=== PATIENT | male | born 1975 | race Caucasian/White ===

== ENCOUNTER 2016-07-10 10:32 | Emergency (ER) | payer BC, OTHER ==
[~2016-07-10] VITALS: Ht 180.3 cm; Wt 117.9 kg
[~2016-07-10 10:32] MED LIST: AMLO25TA PO; ATARAX OR; LORT5TAB PO; MAAL600C PO; PAXI20TA OR; PAXI40TA OR; PROTPAK PO; SIMV20TA2 PO; TRAZ100T OR; flexeril PO
[2016-07-10] MEDS ORDERED: PROA1AER INH (11:02)
[2016-07-10] MEDS ORDERED: AMOX-CLAV PO (11:02)
[2016-07-10] MEDS ORDERED: PRED20TA PO (11:02)
--- NOTE | 2016-07-10 12:38 | REP ---
Chest two views HISTORY: Cough Comparison: 04/10/2015 Linear density is present in the left lower lobe consistent with scar. The right lung is clear. The heart is normal in size. The pulmonary vasculature is normal in appearance. The bony structure is intact. IMPRESSION: Left lower lobe scar. Signed by Roel Rosas MD 07/10/2016 12:28 P
[2016-07-10] MEDS ORDERED: [UNRECOGNIZED DRUG - CODE] PO (13:08)
[2016-07-10] MEDS ORDERED: TESS100C PO (13:11)
[2016-07-10 13:31] VITALS: BP 141/92
== END 2016-07-10 13:32 | disposition home or self-care (01) ==
LOC: M ED 11:51
DX: J06.9 Acute upper respiratory infection, unspecified (principal); Z79.2 Long term (current) use of antibiotics; Z79.52 Long term (current) use of systemic steroids; Z88.2 Allergy status to sulfonamides

== ENCOUNTER 2016-07-20 06:12 | Emergency (ER) | payer BC, OTHER ==
[~2016-07-20] VITALS: Ht 180.3 cm; Wt 117.9 kg
[~2016-07-20 06:12] MED LIST changes: +AMOX-CLAV PO; +PRED20TA PO; +PROA1AER INH; +TESS100C PO; +[UNRECOGNIZED DRUG - CODE] PO
[2016-07-20] MEDS ORDERED: diphenhydrAMINE INJ 50MG/ML VIAL (J1200) IV STA (07:28)
[2016-07-20] MEDS ORDERED: NS 1,000 ML IV ONE (07:30)
[2016-07-20] MEDS ORDERED: METOCLOPRAMIDE INJ 10MG/2ML VIAL (J2765) IV ONE (07:30)
[2016-07-20] MEDS ORDERED: KETOROLAC 30 MG/ML VIAL (J1885) IV ONE (07:30)
--- NOTE | 2016-07-20 07:30 | REPUSA ---
CLINICAL HISTORY: Neck pain. TECHNIQUE: Multiple axial images were obtained through the cervical spine. Images were also reconstru cted in coronal and sagittal planes. The study was performed without IV contrast. COMMENTS: There is no fracture or spondylolisthesis visualized. The paraspinal soft tissues are unremarkable. T here are no lytic or blastic lesions. Straightening of cervical lordosis is seen, suggesting muscular spasm. There is evidence of minimal m ultilevel disk disease, demonstrated by minimal osteophytosis and endplate sclerosis. No significant disk herniation is noted at any level. Canal and foramina remain patent. IMPRESSION: 1. No fracture or spondylolisthesis. 2. Straightening of cervical lordosis is seen, suggesting muscular spasm. 3. Minimal multilevel spondylosis. Thank you for your kind referral of this patient.
[2016-07-20] MEDS ORDERED: MORPHINE 4 MG/ML 1ML SYRINGE IV ONE (09:30)
[2016-07-20] MEDS ORDERED: NORCOTAB PO (10:01)
[2016-07-20 10:02] VITALS: BP 138/86
[2016-07-20] MEDS ORDERED: ZOFR4TAB3 PO (10:03)
== END 2016-07-20 10:34 | disposition home or self-care (01) ==
LOC: EDBD 06:12 → M ED 08:23
DX: S06.0X0A Concussion without loss of consciousness, initial encounter (principal); W19.XXXA Unspecified fall, initial encounter; Y92.099 Unspecified place in other non-institutional residence as the place of occurrence of the external cause; Y93.89 Activity, other specified; Y99.9 Unspecified external cause status
CPT/HCPCS: 70450; 72125; 96361; 96374; 96375; 99282; J1200; J1885; J2765

== ENCOUNTER 2016-07-22 10:22 | Emergency (ER) | payer BC, OTHER ==
[~2016-07-22] VITALS: Ht 180.3 cm; Wt 116.6 kg
[~2016-07-22 10:22] MED LIST changes: +NORCOTAB PO; +ZOFR4TAB3 PO
[2016-07-22] MEDS ORDERED: REGL10TA6 PO (12:30)
[2016-07-22] MEDS ORDERED: METOCLOPRAMIDE 10 MG TAB PO ONE (12:30)
[2016-07-22] MEDS ORDERED: ONDANSETRON 4 MG ORAL DISINTEGRATING TAB (S0181) PO ONE (12:30)
[2016-07-22] MEDS ORDERED: ZOFR4TAB3 PO (12:30)
--- NOTE | 2016-07-22 13:05 | REP ---
CT Head without contrast HISTORY: Trauma COMPARISON: 07/20/2016 There is no intraparenchymal hemorrhage, acute infarct, mass or midline shift. The ventricular system is normal in appearance. There is no extra cerebral collection. There is no fracture. The visualized sinuses are clear. IMPRESSION: There is no intracranial lesion. Signed by Roel Rosas MD 07/22/2016 12:57 P
[2016-07-22] MEDS ORDERED: PERC5TAB6 PO (13:12)
[2016-07-22 13:16] VITALS: BP 139/89
== END 2016-07-22 13:26 | disposition home or self-care (01) ==
LOC: M ED 11:21
DX: R51 Headache (principal); R11.2 Nausea with vomiting, unspecified; S09.90XA Unspecified injury of head, initial encounter; W01.0XXA Fall on same level from slipping, tripping and stumbling without subsequent striking against object, initial encounter; Y92.89 Other specified places as the place of occurrence of the external cause; Y93.01 Activity, walking, marching and hiking; Y99.8 Other external cause status; Z88.2 Allergy status to sulfonamides; Z87.442 Personal history of urinary calculi; E80.4 Gilbert syndrome; F41.9 Anxiety disorder, unspecified; F32.9 Major depressive disorder, single episode, unspecified

== ENCOUNTER → 2016-09-02 | Outpatient (CLI) | payer BC, OTHER ==
[~2016-09-02] MED LIST changes: +PERC5TAB6 PO; +REGL10TA6 PO
--- NOTE | 2016-09-02 11:52 | REP ---
HIDA SCAN WITH GALLBLADDER EJECTION FRACTION: Following the intravenous administration of 6.6 millicuries technetium 99m Mebrofenin, multiple images of the right upper quadrant are performed every 5 minutes for a period of 1 hour. The gallbladder is visualized at 10 minutes post injection. There is biliary to bowel transit at 55 minutes post injection with no scintigraphic evidence of cholecystitis. At the 1-hour livan, 8 ounces of Ensure Enlive was ingested and further imaging performed for 1 hour. Gallbladder activity is measured in the gallbladder ejection fraction is calculated to be 93%, which is normal. IMPRESSION: Normal gallbladder ejection fraction. No scintigraphic evidence of cholecystitis. Signed by Hugo Armenta MD 09/02/2016 05:42 P
== END ==
LOC: M RAD 07:59
PROVIDERS: ATTEND Internal Medicine
DX: R10.11 Right upper quadrant pain (principal)

== ENCOUNTER → 2016-09-06 | Outpatient (REF) | payer BC, OTHER ==
[2016-09-09 08:37] LABS: CONTROL LINE HPYORI INT CTR LINE PRESENT
[2016-09-10 00:31] LABS: ENDOMYSIAL ABY IgA Negative (Negative)
== END ==
LOC: M LAB REF 16:30
PROVIDERS: ATTEND Internal Medicine
DX: R10.11 Right upper quadrant pain (principal); R10.13 Epigastric pain; K58.0 Irritable bowel syndrome with diarrhea

== ENCOUNTER → 2019-01-26 | Outpatient (REF) | payer OTHER ==
[~2019-01-26] MED LIST changes: +HYDR-3715 PO; -NORCOTAB PO; +PERC5TAB12 PO; -PERC5TAB6 PO; -PROA1AER INH; +PROAAER10 INH; +ZOFR4TAB14 PO; -ZOFR4TAB3 PO
== END ==
LOC: M LAB REF 19:24
PROVIDERS: ATTEND Internal Medicine
DX: K57.30 Diverticulosis of large intestine without perforation or abscess without bleeding (principal)

== ENCOUNTER 2021-01-16 13:55 | Emergency (ER) | payer OTHER, BC ==
[~2021-01-16] VITALS: Ht 180.3 cm; Wt 124.0 kg
[2021-01-16 13:55] VITALS: BP 134/93
[~2021-01-16 13:55] MED LIST changes: -SIMV20TA2 PO; +SIMV20TA22 PO
--- NOTE | 2021-01-16 14:29 | REP ---
INDICATION: trauma COMPARISON: 03/06/2015. TECHNIQUE: Four views left hand. FINDINGS: There is no evidence of acute fracture, dislocation, or intrinsic bone disease.There is an old avulsion fracture at the base of the 3rd proximal phalanx. IMPRESSION: No acute fracture or dislocation. <Electronically signed by Hugo Armenta > 01/16/21 [id number]
[2021-01-16] MEDS ORDERED: LOSA50TA88 (15:11)
[2021-01-16] MEDS ORDERED: BUPR150T12 (15:11)
== END 2021-01-16 15:14 | disposition home or self-care (01) ==
LOC: M ED 13:55
DX: S67.22XA Crushing injury of left hand, initial encounter (principal); W23.1XXA Caught, crushed, jammed, or pinched between stationary objects, initial encounter; Y92.9 Unspecified place or not applicable; Y93.9 Activity, unspecified; Y99.0 Civilian activity done for income or pay; Z79.899 Other long term (current) drug therapy

== ENCOUNTER 2021-02-24 14:21 | Emergency (ER) | payer OTHER, BC ==
[~2021-02-24] VITALS: Ht 180.3 cm; Wt 122.7 kg
[~2021-02-24 14:21] MED LIST changes: +BUPR150T12; +LOSA50TA88
[2021-02-24] MEDS ORDERED: LEXA1TAB PO (14:29)
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
[2021-02-24] MEDS ORDERED: GI COCKTAIL 50ML BTL(HYOSCYAMINE/MAALOX/LIDOCAINE VISCOUS)(1:3:1) PO ONE (14:50)
[2021-02-24] MEDS ORDERED: ASPIRIN 81 MG CHEW TABLET PO ONE (14:50)
[2021-02-24 14:53] LABS: BASO # 0.1 10^3/uL (0.0-0.2); BASO % 0.6 % (0.0-1.0); EOS # 0.4 10^3/uL (0.0-0.5); EOS % 5.3 % (0.0-3.0); HEMATOCRIT 42.1 % (42.0-52.0); HEMOGLOBIN 14.9 g/dl (13.5-17.5); LYMPH # 1.9 10^3/uL (1.5-5.0); LYMPH % 24.3 % (24.0-44.0); MEAN CORPUSCULAR HEMOGLOBIN 31.3 pg (27.0-33.0); MEAN CORPUSCULAR HGB CONC 35.4 g/dl (32.0-36.5); MEAN CORPUSCULAR VOLUME 88.4 fl (80.0-96.0); MONO # 0.7 10^3/uL (0.0-0.8); MONO % 8.7 % (2.0-8.0); NEUTROPHILS # 4.8 10^3/uL (1.5-8.5); NEUTROPHILS % 60.6 % (36.0-66.0); PLATELET COUNT, AUTOMATED 213 10^3/uL (150-450); RED BLOOD COUNT 4.76 10^6/uL (4.30-6.10)
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
[2021-02-24 15:32] LABS: BLOOD UREA NITROGEN 14 MG/DL (7-18); CALCIUM LEVEL 8.3 MG/DL (8.5-10.1); CARBON DIOXIDE LEVEL 26 MEQ/L (21-32); CHLORIDE LEVEL 109 MEQ/L (98-107); CK-MB VALUE MASS 1.2 NG/ML (<3.6); CPK CREATINE PHOSPHOKINASE 118 U/L (39-308); CREATININE FOR GFR 1.05 MG/DL (0.70-1.30); GLOMERULAR FILTRATION RATE > 60.0 (>60); GLUCOSE, FASTING 129 MG/DL (70-100); MB/CK RELATIVE INDEX 1.02 (< OR =4); SODIUM LEVEL 141 MEQ/L (136-145); TROPONIN I < 0.02 NG/ML (< 0.10)
--- NOTE | 2021-02-24 15:45 | REP ---
INDICATION: CHEST PAIN. COMPARISON: 07/10/2016 TECHNIQUE: Portable FINDINGS: The technique utilized in obtaining the radiograph has magnified the cardiac silhouette and accentuated the interstitial markings. The superior mediastinal structures are midline. The cardiac silhouette is unremarkable in size, shape, and position. The diaphragmatic surfaces of the lungs are regular, and the costophrenic angles are clear. The pulmonary wise are clear. The imaged osseous structures are intact. IMPRESSION: There is no acute cardiopulmonary disease. <Electronically signed by Collin Ramachandran > 02/24/21 [id number]
[2021-02-24] MEDS ORDERED: KETOROLAC 30 MG/ML 1ML VIAL IV ONE (16:20)
--- NOTE | 2021-02-24 18:23 | ECGEPIP ---
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
[2021-02-24] MEDS ORDERED: ISOVUE-370 76% 100ML VIAL As Ordered ONE (18:28)
[2021-02-24 20:14] LABS: CK-MB VALUE MASS < 1.0 NG/ML (<3.6); CPK CREATINE PHOSPHOKINASE 123 U/L (39-308); MB/CK RELATIVE INDEX 0.81 (< OR =4); TROPONIN I < 0.02 NG/ML (< 0.10)
[2021-02-24 20:15] VITALS: BP 128/90
[2021-02-24 20:16] LABS: ALBUMIN 3.6 GM/DL (3.2-5.2); ALT/SGPT 49 U/L (12-78); BILIRUBIN,DIRECT 0.1 MG/DL (0.0-0.2); BILIRUBIN,TOTAL 0.9 MG/DL (0.2-1.0); LIPASE 108 U/L (73-393); TOTAL PROTEIN 6.7 GM/DL (6.4-8.2)
--- NOTE | 2021-02-25 07:52 | ECGEPIP ---
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
--- NOTE | 2021-02-26 08:40 | REP ---
INDICATION: chest pain into back; r/o TAA. COMPARISON: CT abdomen and pelvis 09/09/2016. TECHNIQUE: CT angiogram chest performed following the intravenous administration of 100 cc of Isovue 370. Sagittal and coronal reconstruction images are performed. FINDINGS: Lungs: Clear, no infiltrate or nodule. Mediastinum: No adenopathy. Pulmonary arteries: No evidence of pulmonary embolism. Dora: No adenopathy. Axilla: No adenopathy. Pleura: No effusion. Heart: Not enlarged. Thoracic aorta: No aneurysm or dissection. Upper abdominal structures: There is a cyst of the upper pole the right kidney 1.4 cm in diameter. Visualized osseous structures: Unremarkable. IMPRESSION: No CT evidence of pulmonary embolism. No infiltrate seen. A preliminary report was provided by [facility] Radiology at the time of the exam. <Electronically signed by Hugo Armenta > 02/26/21 [id number]
== END 2021-02-24 20:36 | disposition home or self-care (01) ==
LOC: M ED 14:21
DX: R07.89 Other chest pain (principal); R00.1 Bradycardia, unspecified; E80.4 Gilbert syndrome; Z87.442 Personal history of urinary calculi; F32.9 Major depressive disorder, single episode, unspecified; Z88.2 Allergy status to sulfonamides; Z79.899 Other long term (current) drug therapy
CPT/HCPCS: 36415; 71045; 71275; 80048; 80076; 82550; 82553; 83690; 84484; 85025; 85379; 93005; 93041; 94760; 96374; 99285; J1885; Q9967

== ENCOUNTER → 2021-09-18 | Outpatient (CLI) | payer BC, OTHER ==
[~2021-09-18] MED LIST changes: +LEXA1TAB PO; +LOSA50TA28; -LOSA50TA88
== END ==
LOC: M SOG 10:35
PROVIDERS: ATTEND Physician Assistant
DX: M79.642 Pain in left hand (principal)

== ENCOUNTER 2022-12-12 15:35 | Emergency (ER) | payer OTHER, BC ==
[~2022-12-12] VITALS: Ht 180.3 cm; Wt 131.6 kg
[2022-12-12] MEDS ORDERED: IBUPROFEN 600MG TAB PO ONE (17:15)
[2022-12-12 17:29] VITALS: BP 132/90; TEMP 97.2; O2SAT 98
== END 2022-12-12 17:30 | disposition home or self-care (01) ==
LOC: M ED 15:35
DX: S60.222A Contusion of left hand, initial encounter (principal); W23.0XXA Caught, crushed, jammed, or pinched between moving objects, initial encounter; F41.9 Anxiety disorder, unspecified; E80.4 Gilbert syndrome; Z87.442 Personal history of urinary calculi; Z88.2 Allergy status to sulfonamides; Y99.0 Civilian activity done for income or pay; Z79.811 Long term (current) use of aromatase inhibitors; Z79.899 Other long term (current) drug therapy

== ENCOUNTER 2023-08-07 14:16 | Emergency (ER) | payer OTHER, BC ==
[~2023-08-07] VITALS: Ht 180.3 cm; Wt 135.5 kg
[2023-08-07 14:16] VITALS: TEMP 97.3
[2023-08-07] MEDS: KETOROLAC 30 MG/ML 1ML VIAL IM ONE (14:50)
[2023-08-07 15:24] VITALS: BP 132/72; O2SAT 99
== END 2023-08-07 15:26 | disposition home or self-care (01) ==
LOC: M ED 14:16
DX: S63.92XA Sprain of unspecified part of left wrist and hand, initial encounter (principal); S60.212A Contusion of left wrist, initial encounter; Y04.0XXA Assault by unarmed brawl or fight, initial encounter; F32.A Depression, unspecified; Y92.9 Unspecified place or not applicable; Y93.9 Activity, unspecified; Y99.0 Civilian activity done for income or pay; Z79.899 Other long term (current) drug therapy; Z88.2 Allergy status to sulfonamides
CPT/HCPCS: 73110; 96372; 99283; J1885

== ENCOUNTER → 2023-12-31 | Outpatient (CLI) | payer OTHER, BC ==
[~2023-12-31] MED LIST changes: +ISOVUE-300 61% 100ML VIAL As Ordered ONE; +LIDOCAINE 1% MDV 20ML VIAL As Ordered ONE; +PROHANCE 279.3MG/ML 5ML VIAL As Ordered ONE
== END ==
LOC: M RAD 06:08
PROVIDERS: ATTEND Orthopaedic Surgery Hand Surgery
DX: M25.532 Pain in left wrist (principal)
CPT/HCPCS: 25246; 73223; 77002; A9576; Q9967

== ENCOUNTER → 2024-02-04 | Outpatient (REF) | payer OTHER ==
[~2024-02-04] MED LIST changes: -ISOVUE-300 61% 100ML VIAL As Ordered ONE; -LIDOCAINE 1% MDV 20ML VIAL As Ordered ONE; -PROHANCE 279.3MG/ML 5ML VIAL As Ordered ONE
[2024-02-04 12:21] LABS: FOLLICLE STIMULATING HORMONE 3.1 mIU/ML (1.4-18.1); LUTEINIZING HORMONE 0.9 mIU/ML (1.5-9.3)
== END ==
LOC: M LAB REF 11:44
PROVIDERS: ATTEND Internal Medicine
DX: N52.9 Male erectile dysfunction, unspecified (principal); R53.83 Other fatigue

== ENCOUNTER 2024-05-09 18:27 | Emergency (ER) | payer BC, OTHER ==
[~2024-05-09] VITALS: Ht 180.3 cm; Wt 137.0 kg
[2024-05-09] MEDS: IPRATROPIUM 0.5MG/ALBUTEROL 2.5MG INH SOL UD 3ML (DUONEB) NEB ONE ×2 (19:21→21:36)
[2024-05-09 19:45] LABS: BASO # 0.1 10^3/uL (0.0-0.2); BASO % 0.6 % (0.0-1.0); EOS # 0.1 10^3/uL (0.0-0.5); HEMATOCRIT 46.5 % (42.0-52.0); LYMPH # 2.1 10^3/uL (1.5-5.0); LYMPH % 22.4 % (24.0-44.0); MEAN CORPUSCULAR HEMOGLOBIN 30.9 pg (27.0-33.0); MEAN CORPUSCULAR HGB CONC 34.4 g/dl (32.0-36.5); MEAN CORPUSCULAR VOLUME 89.9 fl (80.0-96.0); MONO # 0.8 10^3/uL (0.0-0.8); MONO % 8.3 % (2.0-8.0); NEUTROPHILS # 6.2 10^3/uL (1.5-8.5); NEUTROPHILS % 66.6 % (36.0-66.0); PLATELET COUNT, AUTOMATED 263 10^3/uL (150-450); RED BLOOD COUNT 5.17 10^6/uL (4.30-6.10); WHITE BLOOD COUNT 9.3 10^3/uL (4.0-10.0)
[2024-05-09 20:02] LABS: BLOOD UREA NITROGEN 20 MG/DL (9-23); CALCIUM LEVEL 9.4 MG/DL (8.5-10.1); CARBON DIOXIDE LEVEL 26 MMOL/L (20-31); CHLORIDE LEVEL 104 MMOL/L (98-107); CREATININE FOR GFR 1.35 MG/DL (0.70-1.30); GLOMERULAR FILTRATION RATE > 60.0 (>60); GLUCOSE, FASTING 90 MG/DL (60-100); POTASSIUM SERUM 4.9 MMOL/L (3.5-5.1); SODIUM LEVEL 139 MMOL/L (136-145)
[2024-05-09] MEDS ORDERED: VENTAER INH (21:23)
[2024-05-09] MEDS ORDERED: PRED20TA PO (21:23)
[2024-05-09 21:27] VITALS: O2SAT 93
[2024-05-09 21:30] VITALS: BP 137/86
[2024-05-09] MEDS: methylPREDNISolone 125MG 2ML VIAL IV ONE (21:36)
[2024-05-09 21:45] VITALS: TEMP 97.1
== END 2024-05-09 22:03 | disposition home or self-care (01) ==
LOC: M ED 18:27
DX: R05.9 Cough, unspecified (principal); B97.4 Respiratory syncytial virus as the cause of diseases classified elsewhere; E80.4 Gilbert syndrome; Z88.2 Allergy status to sulfonamides; Z79.52 Long term (current) use of systemic steroids; Z79.899 Other long term (current) drug therapy; Z87.442 Personal history of urinary calculi
CPT/HCPCS: 71046; 80048; 83880; 85025; 87486; 87581; 87633; 87798; 93005; 93041; 94640; 94760; 96374; 99285; J2919